=== PATIENT | male | born 2000 | race Caucasian/White ===

== ENCOUNTER 2020-06-30 03:11 | Emergency (ER) | payer BC ==
--- NOTE | 2020-06-30 08:08 | CT ---
PRELIMINARY REPORT/[facility]/EMERGENCY AFTER HOURS PROCEDURE: EXAMINATION CTA Head With Intravenous Contrast. CT Head without Contrast. HISTORY PT FELT IF HE HAD HIGH BP DURING SEXUAL INTERCOURSE AROUND 0. PT SAYS HE HAS FELT WEIRD EVERY S MAREN. PT HAS A HEADACHE AND "FOGGY BRAIN". TECHNIQUE Axial CTA images of the head with intravenous contrast. Three-dimensional MIP/volume rendered reforma tions were performed. Axial computed tomography images of the head/brain performed without intravenous contrast. CONTRAST With; 100ML ISOVUE 370 COMPARISON None provided. FINDINGS: CT HEAD: BRAIN: No acute intraparenchymal hemorrhage. No mass Lesion. No CT evidence for acute territorial infarct. Preserved rivera-white matter differentiation. No midline shift or extra-axial collection. VENTRICLES: Normal size of the ventricles. Preserved basal cisterns. ORBITS: The orbits are unremarkable. SINUSES AND MASTOIDS: The paranasal sinuses and mastoid air cells are clear CTA HEAD: INTERNAL CAROTID ARTERIES The intracranial ICAs are patent with no significant stenosis. No occlusion. No aneurysm. ANTERIOR CEREBRAL ARTERIES No significant stenosis. No occlusion. No aneurysm. MIDDLE CEREBRAL ARTERIES No significant stenosis. No occlusion. No aneurysm. POSTERIOR CEREBRAL ARTERIES No significant stenosis. No occlusion. No aneurysm. BASILAR ARTERY No significant stenosis. No occlusion. No aneurysm. VERTEBRAL ARTERIES No significant stenosis. No occlusion. No aneurysm. Patent dural venous sinuses. No evidence of vascular malformation. OTHER: SOFT TISSUES: No acute finding. No masses or lymphadenopathy. BONES: No acute osseous abnormality. IMPRESSION: 1. Unremarkable CTA of the head. 2. No acute intracranial findings. ELECTRONICALLY SIGNED BY: Jean Marie Lyn MD Jun 30, 2020 4:10:43 AM INSTRUCTIONAL INTERVENTIONIST This report is intended for review by the ordering physician only, in accordance of law. If you recei ve this report in error, please call [facility] at [phone]. FINAL REPORT CTA HEAD WITH AND WITHOUT CONTRAST CT HEAD WITHOUT CONTRAST: CT HEAD: No evidence of intracranial mass, hemorrhage, infarct, or other acute process. IMPRESSION: Unremarkable CT head without contrast. CTA HEAD: Axial tomograms obtained with multiplanar reconstruction and 3D postprocessing according to angio pro tocol. Intracranial internal carotid arteries, anterior cerebral arteries, middle cerebral arteries, basilar artery, and posterior cerebral arteries are patent and unremarkable. IMPRESSION: No acute findings. I am in agreement with the preliminary report issued by [facility]. POS: [id number]
[2020-06-30] MEDS ORDERED: Iopamidol 370 76% 100 ML VIAL ONE (09:08)
== END 2020-06-30 04:35 | disposition home or self-care (01) ==
LOC: ERS 03:11
DX: R51.9 Headache, unspecified (principal)
CPT/HCPCS: 70496; Q9967